=== PATIENT | female | born 1935 | race Caucasian/White ===

== ENCOUNTER 2017-10-15 12:49 | Outpatient (CLI) | payer MEDICARE | END 2017-10-15 12:50 | disposition home or self-care (01) | LOC: BICMAMMO 12:49 | PROVIDERS: ATTEND Nurse Practitioner | DX: Z12.31 Encounter for screening mammogram for malignant neoplasm of breast (principal); Z13.820 Encounter for screening for osteoporosis; M85.852 Other specified disorders of bone density and structure, left thigh | CPT/HCPCS: 77063; 77067; 77080 ==

== ENCOUNTER 2018-06-02 09:48 | Outpatient (CLI) | payer MEDICARE ==
--- NOTE | 2018-06-02 12:54 | MRI ---
MRI LUMBAR SPINE WITH AND WITHOUT CONTRAST: HISTORY: Fall one month ago with bilateral leg pain. History of back surgery. COMPARISON: 05/27/2016 and 04/28/2013 TECHNIQUE: Multiplanar, multisequence MR images were obtained of the lumbar spine with and without IV contrast. FINDINGS: Generalized disk desiccation is seen. The vertebral bodies demonstrate normal height and alignment w ithout fracture or subluxation. The patient has had laminectomies in the lower lumbosacral spine. A small amount of edema is seen in the paraspinal soft tissues, at the operative site. There is enhan cement of the paraspinal musculature, which is less intense than the prior examination. There is sti ll a small amount of epidural enhancement, seen inferiorly and anteriorly, at the L5-S1 level, but al so less pronounced. T12-L1: A small disk osteophyte complex is seen. Mild bilateral posterior facet arthrosis. No signi ficant central canal stenosis or neural foraminal stenosis. L1-L2: A small disk osteophyte complex is seen. Mild bilateral posterior facet arthrosis. Mild kenan tral canal stenosis. Mild bilateral neural foraminal stenosis. L2-L3: A small disk osteophyte complex is seen. Moderate bilateral posterior facet arthrosis. Mild central canal stenosis. Mild to moderate bilateral neural foraminal stenosis. L3-L4: A moderate disk osteophyte complex is seen. Moderate bilateral posterior facet arthrosis. M ild central canal stenosis. Moderate bilateral neural foraminal stenosis. L4-L5: The disk has predominantly been removed at this level. A moderate osteophyte is seen, extend ing posteriorly. Moderate bilateral posterior facet arthrosis. Moderate central canal stenosis. Th e osteophyte appears to impress upon the left S1 nerve root. Moderate bilateral neural foraminal jeri nosis, left greater than right. L5-S1: A small central disk osteophyte complex is seen. Mild bilateral posterior facet arthrosis. Moderate central canal stenosis. Mild to moderate bilateral neural foraminal stenosis. IMPRESSION: Post surgical and degenerative changes of the lumbar spine, as above. POS: SHAYLEE
== END 2018-06-02 09:49 | disposition home or self-care (01) ==
LOC: TBSIIMAG 09:48
PROVIDERS: ATTEND Neurological Surgery
DX: M47.26 Other spondylosis with radiculopathy, lumbar region (principal); M47.27 Other spondylosis with radiculopathy, lumbosacral region; Z98.890 Other specified postprocedural states
CPT/HCPCS: 72158; 82565

== ENCOUNTER 2018-06-30 11:46 | Outpatient (CLI) | payer MEDICARE | END 2018-06-30 11:47 | disposition home or self-care (01) | LOC: LABBT 11:46 | PROVIDERS: ATTEND Orthopaedic Surgery | DX: Z01.818 Encounter for other preprocedural examination (principal); M17.11 Unilateral primary osteoarthritis, right knee | CPT/HCPCS: 86850; 86900; 86901; 87081 ==

== ENCOUNTER 2018-07-05 06:22 | Inpatient (IN) | payer MEDICARE ==
[2018-06-24 09:50] VITALS: BMI 27.4
[2018-07-05] MEDS ORDERED: Midazolam HCl 2 mg/2 ml Vial ONE (07:05)
[2018-07-05] MEDS ORDERED: Fentanyl 100 MCG/2 ML VIAL ONE (07:05)
[2018-07-05] MEDS ORDERED: Clindamycin/D5W 600 mg/50 ml Premix Bag ONE (07:16)
[2018-07-05] MEDS ORDERED: Sodium Chloride 0.9% 100 ML ONE (07:16)
[2018-07-05] MEDS ORDERED: traMADol HCl 50 MG TAB PO PRN ×3 (09:02→11:44)
[2018-07-05] MEDS ORDERED: Ropivacaine HCl/PF 250 ML in Premix Bag 1 BAG NERVE BLCK SCH (09:02)
[2018-07-05] MEDS ORDERED: Ondansetron HCl/PF 4 MG/2 ML Vial IVP PRN ×3 (09:02→11:44)
[2018-07-05] MEDS ORDERED: HYDROcodone/Acetaminophen 10/325 mg Tablet PO PRN ×2 (09:02)
[2018-07-05] MEDS ORDERED: Zolpidem Tartrate 5 MG TAB PO PRN ×2 (09:02→11:44)
[2018-07-05] MEDS ORDERED: Promethazine HCl 25 MG/ML VIAL IM PRN ×3 (09:02→11:44)
[2018-07-05] MEDS ORDERED: Bupivacaine PF 0.5% 30 ML VIAL ONE (10:11)
[2018-07-05] MEDS ORDERED: Promethazine HCl 25 MG/ML VIAL SLOW IVP PRN (10:34)
[2018-07-05] MEDS ORDERED: Ropivacaine 0.2% HCl/PF (40 MG/20 ML VIAL) ONE (10:35)
[2018-07-05] MEDS ORDERED: Ropivacaine 0.5% HCl/PF (150 MG/30 ML VIAL) ONE (10:35)
[2018-07-05] MEDS ORDERED: PROPOFOL 200 MG/20 ML VIAL ONE (10:37)
[2018-07-05] MEDS ORDERED: Ondansetron HCl/PF 4 MG/2 ML Vial ONE (10:37)
[2018-07-05] MEDS ORDERED: ePHEDrine/0.9% NaCl/PF SYRINGE 50 mg/10 ml ONE (10:37)
[2018-07-05] MEDS ORDERED: diphenhydrAMINE 25 MG CAP PO PRN (11:44)
[2018-07-05] MEDS ORDERED: Tranexamic Acid 1,000 MG in Sodium Chloride 0.9% 100 ML IVPB SCH (11:45)
--- NOTE | 2018-07-05 12:34 | OP ---
DATE OF PROCEDURE: 07/05/2018 PREOPERATIVE DIAGNOSIS: Right knee osteoarthrosis. POSTOPERATIVE DIAGNOSIS: Right knee osteoarthrosis. PROCEDURE PERFORMED: Right total knee replacement using Umberto pinless navigation. SURGEON: Hung Tipton M.D. EQUIPMENT MANAGER: Stephen Gregory M.D. COMPLICATIONS: None. ANESTHESIA: The patient had general anesthetic as well as preoperative block. IMPLANTS: To the right knee include a [place] [employer] total knee system, the femur size 4 cruciate retaining femur, tibial baseplate was a size 3 [place] Tibial Baseplate. We used a 3 x 9 mm CSX3 tibial bearing and an asymmetric 29 x 9 X3 patella. DISPOSITION: She did go to the recovery room in stable condition. INDICATIONS: An 82-year-old female who has failed nonoperative treatment and at this time wished to have the knee replaced. PROCEDURE IN DETAIL: After all appropriate consent forms were explained and signed, the patient was t aken back to the Operating Room and at this time was given general anesthetic. Once the level of anes thesia was appropriate, a well-padded tourniquet was placed on the right leg and the leg was then pre pped and draped in standard surgical fashion. The limb was exsanguinated and tourniquet taken up to 3 00 mmHg. Midline incision was made with a 10 blade down through the skin and subcutaneous tissue. Bov ie electrocautery was used to coagulate any brisk venous bleeding. A new blade was used to make a med ial parapatellar arthrotomy. Small subperiosteal release was performed medially and excess fat pad wa s removed. The knee was flexed up to gain access to the femur. The femur was navigated and distal fem oral resection was made. Epicondylar access was used to align our sizing jig and this was pinned in p lace. We sized our femur to be a size 4 cruciate retaining femur, 4:1 cutting block was applied and p inned. Anterior and posterior chamfer cuts were then made. We navigated out our proximal tibia and ma de our proximal tibial resection. Spreaders were used to remove any posterior osteophytes off the andres k of the femur as well as remaining meniscal tissue. A long alignment kar was then used to achieve co rrect rotation of our tibial baseplate and a size 3 [place] Tibial Baseplate was chosen. This was p inned in place. We trialed the polyethylene and a 3 x 9 mm CSX3 tibial bearing polyethylene gave us f ull extension and good stability throughout range of motion. Two towel clips and a saw were used to c ut our patella. Three lug nuts were drilled and asymmetric 29 x 9 X3 patella was trialed which sat ni marry in the trochlear groove. We then drilled our femur and punched our tibia. All components were re moved. The knee was thoroughly irrigated and dried. Cement was mixed into the cement gun on the back table. Components were then placed. The knee was held out in full extension until the cement had drie d. All excess bone cement was removed. Multiple #2 Vicryl stitches as well as a Quill was used to cl ose our extensor mechanism. 0 Quill followed by a running Monoderm was then used to close the skin. S urgicel glue was then used on the skin. Once this had dried, soft tissue dressing was applied to the limb, tourniquet was let down, and the toes pinked up nicely. The patient was then awakened and take n to the Recovery Room in stable condition. All counts were correct at the end of the case. The patie nt did receive preoperative IV antibiotics. The patient was injected with Exparel for postoperative pain relief.
[2018-07-05] MEDS ORDERED: Acetaminophen 1,000 MG in Premix Bag 1 BAG IVPB SCH (13:00)
[2018-07-05] MEDS ORDERED: Clindamycin/D5W 900 MG in Premix Bag 1 BAG IVPB SCH (14:00)
[2018-07-05] MEDS: Fentanyl 100 MCG/2 ML VIAL IV PRN ×2 (14:09→23:19)
[2018-07-05] MEDS: Sodium Chloride 0.9% 1,000 ML IV SCH ×2 (14:17→20:03)
[2018-07-05] MEDS ORDERED: Mag-Al 1200 mg/1200 mg/30 ML UDCUP PO PRN (14:39)
[2018-07-05] MEDS ORDERED: Ondansetron ODT 4 MG TAB PO PRN (14:39)
[2018-07-05] MEDS ORDERED: Senokot 8.6 MG TAB PO PRN (14:39)
[2018-07-05] MEDS ORDERED: Artificial Tears 18 DROP/0.9 ML EA EYE PRN (14:39)
[2018-07-05] MEDS ORDERED: Diabetic Tussin 200 MG/10 ML UDCUP PO PRN (14:39)
[2018-07-05] MEDS ORDERED: Sodium Chloride 0.65% Nasal 44 ML BOT EA NARE PRN (14:39)
[2018-07-05] MEDS ORDERED: Milk Of Magnesia 30 ML UDCUP PO PRN (14:39)
[2018-07-05] MEDS ORDERED: Eucerin (Mineral Oil/Petrolatum,White) 30 gm Jar TOP PRN (14:39)
[2018-07-05] MEDS ORDERED: hydrALAZINE 20 MG/ML VIAL SLOW IVP PRN (14:39)
[2018-07-05] MEDS ORDERED: Chloraseptic Spray 180 ml Bottle PO PRN (14:39)
[2018-07-05] MEDS ORDERED: Loperamide HCl 2 MG CAP PO PRN (14:39)
--- NOTE | 2018-07-05 14:49 | PDOC.PN ---
- Subjective Encounter Start Date: 07/05/18 Encounter Start Time: 15:05 -: old records requested/rev Patient seen and examined. No overnight events admitted for right knee replacement consulted for medical management currently pain controlled - Objective Resuscitation Status: Resuscitation Status FULL:Full Resuscitation MAR Reviewed: Yes Vital Signs & Weight: Weight Weight 160 lb Additional Labs: OLD MEDICAL RECORDS REVIEWED INCLUDING LABS, ALL LABS ARE NORMAL EKG Reviewed by me: Yes Phys Exam - Physical Examination Constitutional: NAD HEENT: PERRLA, moist MMs, sclera anicteric Neck: no JVD, supple Respiratory: no wheezing, no rales, no rhonchi Cardiovascular: RRR, no significant murmur, no rub Gastrointestinal: soft, non-tender, no distention, positive bowel sounds Musculoskeletal: no edema, pulses present right knee with dressing, nerve block in place Neurological: non-focal, normal sensation, moves all 4 limbs Lymphatic: no nodes Psychiatric: normal affect, A&O x 3 Skin: no rash, normal turgor Dx/Plan (1) Status post total right knee replacement Code(s): Z96.651 - PRESENCE OF RIGHT ARTIFICIAL KNEE JOINT Status: Acute (2) Dyslipidemia Code(s): E78.5 - HYPERLIPIDEMIA, UNSPECIFIED Status: Chronic (3) Hypertension Code(s): I10 - ESSENTIAL (PRIMARY) HYPERTENSION Status: Chronic (4) Osteoarthritis Code(s): M19.90 - UNSPECIFIED OSTEOARTHRITIS, UNSPECIFIED SITE Status: Chronic - Plan cont current plan of care, plan discussed w/ family, PT/OT * continue aspirin for DVT prophylaxis as per protocol * add pepcid for GI prophylaxis * code status- full code * nerve block as per anesthesia * PT/OT as per [facility] protocol * pain control with pain meds as below * medication reviewed as below * symptomatic treatment * home medication reconciled. * discussed with family Review of Systems - Review of Systems Constitutional: negative: fever, chills, sweats, weakness, malaise, other Eyes: negative: Pain, Vision Change, Conjunctivae Inflammation, Eyelid Inflammation, Redness, Other ENT: negative: Ear Pain, Ear Discharge, Nose Pain, Nose Discharge, Nose Congestion, Mouth Pain, Mouth Swelling, Throat Pain, Throat Swelling, Other Respiratory: negative: Cough, Dry, Shortness of Breath, Hemoptysis, SOB with Excertion, Pleuritic Pain, Sputum, Wheezing Cardiovascular: negative: chest pain, palpitations, orthopnea, paroxysmal nocturnal dyspnea, edema, light headedness, other Gastrointestinal: negative: Nausea, Vomiting, Abdominal Pain, Diarrhea, Constipation, Melena, Hematochezia, Other Genitourinary: negative: Dysuria, Frequency, Incontinence, Hematuria, Retention , Other Musculoskeletal: negative: Neck Pain, Shoulder Pain, Arm Pain, Back Pain, Hand Pain, Leg Pain, Foot Pain, Other Skin: negative: Rash, Lesions, Jonel, Bruising, Other - Medications/Allergies Allergies/Adverse Reactions: Allergies Allergy/AdvReac Type Severity Reaction Status Date / Time ciprofloxacin [From Cipro] Allergy Verified 06/24/18 12:10 codeine Allergy "REAL SICK" Verified 06/24/18 09:51 pentazocine lactate Allergy HALLUCINATI Verified 06/24/18 09:51 [From Talwin] ONS sulfamethoxazole Allergy LARGE Verified 06/24/18 09:51 [From Bactrim] WHELPS trimethoprim [From Bactrim] Allergy LARGE Verified 06/24/18 09:51 WHELPS ADHESIVES Allergy RASH, Uncoded 10/17/16 11:20 BLISTERING Medications: Current Medications Acetaminophen (Tylenol) 650 mg PO Q4H PRN PRN Reason: ESPINOZA/ T > 101F; Mild Pain (1-3) Hydrocodone Bitart/Acetaminophen ([place] 10/325) 1 tab PO Q4H PRN PRN Reason: Pain (1-3) Hydrocodone Bitart/Acetaminophen ([place] 10/325) 2 tab PO Q4H PRN PRN Reason: PAIN (4-6) Al Hydroxide/Mg Hydroxide (Maalox) 15 ml PO Q4H PRN PRN Reason: Heartburn or Indigestion Amlodipine/Benazepril HCl (Lotrel 5/20) 1 cap PO QAM DAN[facility] Artificial Tears (Tears Naturale) 0 drop EA EYE PRN PRN PRN Reason: Dry Eyes Aspirin (Ecotrin) 81 mg PO BID DAN[facility] Atorvastatin Calcium (Lipitor) 10 mg PO HS DAN[facility] Diphenhydramine HCl (Benadryl) 25 mg PO Q6H PRN PRN Reason: Itching Famotidine (Pepcid) 20 mg PO BID [facility] Fentanyl (Sublimaze) 50 mcg IV Q1H PRN PRN Reason: Breakthrough Pain Last Admin: 07/05/18 14:09 Dose: 50 mcg Ferrous Gluconate (Fergon) 324 mg PO BID [facility] Guaifenesin (Robitussin Sf) 200 mg PO Q4H PRN PRN Reason: Cough Hydralazine HCl (Apresoline) 10 mg SLOW IVP Q4H PRN PRN Reason: Systolic BP > 180 Ropivacaine 250 ml/ Device 250 mls @ 0 mls/hr NERVE BLCK INF [facility] Sodium Chloride (Normal Saline 0.9%) 1,000 mls @ 100 mls/hr IV .Q10H [facility] Last Admin: 07/05/18 14:17 Dose: Not Given Vancomycin HCl 1 gm/ Device 200 mls @ 200 mls/hr IVPB 2000 [facility] Stop: 07/05/18 20:59 Acetaminophen 1,000 mg/ Device 100 mls @ 400 mls/hr IVPB ONE [facility] Stop: 07/06/18 15:00 Clindamycin Phosphate/Dextrose (900 mg/ Device) 50 mls @ 100 mls/hr IVPB 1600, 2200 [facility] Stop: 07/05/18 22:29 Iron/Minerals/Multivitamins (Theragran M) 1 tab PO DAILY [facility] Ketorolac Tromethamine (Toradol) 15 mg IVP Q6H PRN PRN Reason: Moderate Pain (4-6) Stop: 07/08/18 09:03 Loperamide HCl (Imodium) 2 mg PO PRN PRN PRN Reason: Diarrhea/Loose Stools Magnesium Hydroxide (Milk Of Magnesium) 30 ml PO DAILYPRN PRN PRN Reason: Constipation Mineral Oil/White Petrolatum (Eucerin Cream) 0 gm TOP BIDPRN PRN PRN Reason: Dry Skin Ondansetron HCl (Zofran) 4 mg IVP Q6H PRN PRN Reason: Nausea/Vomiting Ondansetron HCl (Zofran Odt) 4 mg PO Q6H PRN PRN Reason: Nausea/Vomiting Phenol (Chloraseptic [place] 180 Ml Bot) 0 ml PO PRN PRN PRN Reason: Sore Throat Polyethylene Glycol (Miralax) 17 gm PO HS [facility] Promethazine HCl (Phenergan) 12.5 mg IM Q4H PRN PRN Reason: Nausea/Vomiting Psyllium Hydrophilic Mucilloid (Metamucil) 1 pk PO BID [facility] Senna (Senokot) 2 tab PO HSPRN PRN PRN Reason: Constipation Senna/Docusate Sodium (Senokot S) 2 tab PO BID [facility] Sodium Chloride (Flush - Normal Saline) 10 ml IVF PRN PRN PRN Reason: Saline Flush Sodium Chloride ([place] Nasal [place] 0.65%) 0 ml EA NARE QIDPRN PRN PRN Reason: Nasal Congestion Tramadol HCl (Ultram) 100 mg PO Q6H PRN PRN Reason: Mild Pain (1-3) Zolpidem Tartrate (Ambien) 5 mg PO HSPRN PRN PRN Reason: Insomnia
[2018-07-05] MEDS: Clindamycin/D5W 900 MG in Premix Bag 1 BAG IVPB SCH ×2 (16:42→22:50)
[2018-07-05] MEDS: Ferrous Gluconate 324 MG TAB PO SCH (19:54)
[2018-07-05] MEDS: Atorvastatin Calcium 10 MG TAB PO SCH (19:54)
[2018-07-05] MEDS: Famotidine 20 MG TAB PO SCH (19:54)
[2018-07-05] MEDS: Aspirin 81 mg Enteric Coated Tablet PO SCH (19:54)
[2018-07-05] MEDS: Senokot S 8.6-50 MG TAB PO SCH (19:54)
[2018-07-05] MEDS: Polyethylene Glycol 3350 17 GM Packet PO SCH (19:55)
[2018-07-05] MEDS: Metamucil PACK PO SCH (19:55)
[2018-07-05] MEDS: Ketorolac Tromethamine 30 MG/ML VIAL IVP PRN (19:57)
[2018-07-05] MEDS ORDERED: Vancomycin HCl 1 GM in Premix Bag 1 BAG IVPB SCH (20:00)
[2018-07-06] MEDS: Fentanyl 100 MCG/2 ML VIAL IV PRN (03:07)
[2018-07-06] MEDS: Ketorolac Tromethamine 30 MG/ML VIAL IVP PRN ×3 (04:34→18:20)
[2018-07-06 05:55] LABS: Hemoglobin 11.6 g/dL (12.0-16.0); Mean Corpuscular HGB CONC 32.8 g/dL (32.0-36.0); Mean Corpuscular Volume 94.5 fL (78.0-98.0); Mean Platelet Volume 8.7 fL (7.4-10.4); Platelet Count 202 thou/uL (130-400); RBC Distribution Width 12.4 % (11.5-14.5); Red Blood Cell (RBC) Count 3.73 mill/uL (4.20-5.40); White Blood Cell (WBC) Count 10.6 thou/uL (4.8-10.8)
[2018-07-06] MEDS: Acetaminophen 325 MG TAB PO PRN ×2 (05:55→21:29)
[2018-07-06] MEDS: Famotidine 20 MG TAB PO SCH ×2 (08:46→21:30)
[2018-07-06] MEDS: Amlodipine 5 mg/Benazepril 20 mg CAP PO SCH (08:53)
[2018-07-06] MEDS: Metamucil PACK PO SCH ×3 (08:53→21:36)
[2018-07-06] MEDS: Multivitamin W/ Minerals 1 TAB PO SCH (08:53)
[2018-07-06] MEDS: Aspirin 81 mg Enteric Coated Tablet PO SCH ×2 (08:54→21:35)
[2018-07-06] MEDS: Ferrous Gluconate 324 MG TAB PO SCH ×2 (08:54→21:30)
[2018-07-06] MEDS: Senokot S 8.6-50 MG TAB PO SCH ×2 (08:54→21:30)
[2018-07-06] MEDS: Sodium Chloride 0.9% 1,000 ML IV SCH ×2 (08:55→18:20)
--- NOTE | 2018-07-06 10:25 | PDOC.PN ---
- Subjective Encounter Start Date: 07/06/18 Encounter Start Time: 08:30 Patient seen and examined. No new complaints. No overnight events - Objective Resuscitation Status: Resuscitation Status FULL:Full Resuscitation MAR Reviewed: Yes Vital Signs & Weight: Vital Signs (12 hours) Temp Pulse Resp BP Pulse Ox 07/06/18 08:00 95 07/06/18 07:10 99.1 F 73 18 120/54 L 95 07/06/18 05:00 94 L 07/06/18 04:15 99 F 86 16 128/60 91 L 07/06/18 00:00 98.7 F 82 16 151/78 H Weight Weight 160 lb I&O: 07/05/18 07/06/18 07/07/18 06:59 06:59 06:59 Intake Total 2225 Output Total 2150 Balance 75 Result Diagrams: 07/06/18 04:52 Additional Labs: Accuchecks 07/05/18 22:53 POC Glucose 166 H Phys Exam - Physical Examination Constitutional: NAD HEENT: PERRLA, moist MMs, sclera anicteric Neck: no JVD, supple Respiratory: no wheezing, no rales, no rhonchi Cardiovascular: RRR, no significant murmur, no rub Gastrointestinal: soft, non-tender, no distention, positive bowel sounds Musculoskeletal: no edema, pulses present right knee with dressing, nerve block in place Neurological: non-focal, normal sensation, moves all 4 limbs Psychiatric: normal affect, A&O x 3 Skin: no rash, normal turgor Dx/Plan (1) Status post total right knee replacement Code(s): Z96.651 - PRESENCE OF RIGHT ARTIFICIAL KNEE JOINT Status: Acute (2) Dyslipidemia Code(s): E78.5 - HYPERLIPIDEMIA, UNSPECIFIED Status: Chronic (3) Hypertension Code(s): I10 - ESSENTIAL (PRIMARY) HYPERTENSION Status: Chronic (4) Osteoarthritis Code(s): M19.90 - UNSPECIFIED OSTEOARTHRITIS, UNSPECIFIED SITE Status: Chronic - Plan cont current plan of care, plan discussed w/ family, PT/OT * continue aspirin for DVT prophylaxis as per protocol * add pepcid for GI prophylaxis * nerve block as per anesthesia * PT/OT as per joint bee protocol * pain control with pain meds as below * medication reviewed as below * symptomatic treatment * discussed with family. Review of Systems - Review of Systems ENT: negative: Ear Pain, Ear Discharge, Nose Pain, Nose Discharge, Nose Congestion, Mouth Pain, Mouth Swelling, Throat Pain, Throat Swelling, Other Respiratory: negative: Cough, Dry, Shortness of Breath, Hemoptysis, SOB with Excertion, Pleuritic Pain, Sputum, Wheezing Cardiovascular: negative: chest pain, palpitations, orthopnea, paroxysmal nocturnal dyspnea, edema, light headedness, other Gastrointestinal: negative: Nausea, Vomiting, Abdominal Pain, Diarrhea, Constipation, Melena, Hematochezia, Other Genitourinary: negative: Dysuria, Frequency, Incontinence, Hematuria, Retention , Other Musculoskeletal: negative: Neck Pain, Shoulder Pain, Arm Pain, Back Pain, Hand Pain, Leg Pain, Foot Pain, Other Skin: negative: Rash, Lesions, Jonel, Bruising, Other - Medications/Allergies Allergies/Adverse Reactions: Allergies Allergy/AdvReac Type Severity Reaction Status Date / Time ciprofloxacin [From Cipro] Allergy Verified 06/24/18 12:10 codeine Allergy "REAL SICK" Verified 07/05/18 20:22 pentazocine lactate Allergy HALLUCINATI Verified 06/24/18 09:51 [From Talwin] ONS sulfamethoxazole Allergy LARGE Verified 06/24/18 09:51 [From Bactrim] WHELPS tramadol Allergy unkown Verified 07/05/18 20:22 trimethoprim [From Bactrim] Allergy LARGE Verified 06/24/18 09:51 WHELPS ADHESIVES Allergy RASH, Uncoded 10/17/16 11:20 BLISTERING Medications: Current Medications Acetaminophen (Tylenol) 650 mg PO Q4H PRN PRN Reason: ESPINOZA/ T > 101F; Mild Pain (1-3) Last Admin: 07/06/18 05:55 Dose: 650 mg Hydrocodone Bitart/Acetaminophen ([place] 10/325) 1 tab PO Q4H PRN PRN Reason: Pain (1-3) Hydrocodone Bitart/Acetaminophen ([place] 10/325) 2 tab PO Q4H PRN PRN Reason: PAIN (4-6) Al Hydroxide/Mg Hydroxide (Maalox) 15 ml PO Q4H PRN PRN Reason: Heartburn or Indigestion Amlodipine/Benazepril HCl (Lotrel 5/20) 1 cap PO QAM DANILO Last Admin: 07/06/18 08:53 Dose: 1 cap Artificial Tears (Tears Naturale) 0 drop EA EYE PRN PRN PRN Reason: Dry Eyes Aspirin (Ecotrin) 81 mg PO BID [facility] Last Admin: 07/06/18 08:54 Dose: 81 mg Atorvastatin Calcium (Lipitor) 10 mg PO HS [facility] Last Admin: 07/05/18 19:54 Dose: 10 mg Diphenhydramine HCl (Benadryl) 25 mg PO Q6H PRN PRN Reason: Itching Famotidine (Pepcid) 20 mg PO BID [facility] Last Admin: 07/06/18 08:46 Dose: 20 mg Fentanyl (Sublimaze) 50 mcg IV Q1H PRN PRN Reason: Breakthrough Pain Last Admin: 07/06/18 03:07 Dose: 50 mcg Ferrous Gluconate (Fergon) 324 mg PO BID [facility] Last Admin: 07/06/18 08:54 Dose: 324 mg Guaifenesin (Robitussin Sf) 200 mg PO Q4H PRN PRN Reason: Cough Hydralazine HCl (Apresoline) 10 mg SLOW IVP Q4H PRN PRN Reason: Systolic BP > 180 Ropivacaine 250 ml/ Device 250 mls @ 0 mls/hr NERVE BLCK INF [facility] Sodium Chloride (Normal Saline 0.9%) 1,000 mls @ 100 mls/hr IV .Q10H [facility] Last Admin: 07/06/18 08:55 Dose: Not Given Acetaminophen 1,000 mg/ Device 100 mls @ 400 mls/hr IVPB ONE [facility] Stop: 07/06/18 15:00 Iron/Minerals/Multivitamins (Theragran M) 1 tab PO DAILY [facility] Last Admin: 07/06/18 08:53 Dose: 1 tab Ketorolac Tromethamine (Toradol) 15 mg IVP Q6H PRN PRN Reason: Moderate Pain (4-6) Stop: 07/08/18 09:03 Last Admin: 07/06/18 04:34 Dose: 15 mg Loperamide HCl (Imodium) 2 mg PO PRN PRN PRN Reason: Diarrhea/Loose Stools Magnesium Hydroxide (Milk Of Magnesium) 30 ml PO DAILYPRN PRN PRN Reason: Constipation Mineral Oil/White Petrolatum (Eucerin Cream) 0 gm TOP BIDPRN PRN PRN Reason: Dry Skin Ondansetron HCl (Zofran) 4 mg IVP Q6H PRN PRN Reason: Nausea/Vomiting Ondansetron HCl (Zofran Odt) 4 mg PO Q6H PRN PRN Reason: Nausea/Vomiting Phenol (Chloraseptic [place] 180 Ml Bot) 0 ml PO PRN PRN PRN Reason: Sore Throat Polyethylene Glycol (Miralax) 17 gm PO [facility] Last Admin: 07/05/18 19:55 Dose: 17 gm Promethazine HCl (Phenergan) 12.5 mg IM Q4H PRN PRN Reason: Nausea/Vomiting Psyllium Hydrophilic Mucilloid (Metamucil) 1 pk PO BID [facility] Last Admin: 07/06/18 08:53 Dose: 1 pk Senna (Senokot) 2 tab PO HSPRN PRN PRN Reason: Constipation Senna/Docusate Sodium (Senokot S) 2 tab PO BID [facility] Last Admin: 07/06/18 08:54 Dose: 2 tab Sodium Chloride (Flush - Normal Saline) 10 ml IVF PRN PRN PRN Reason: Saline Flush Sodium Chloride ([place] Nasal [place] 0.65%) 0 ml EA NARE QIDPRN PRN PRN Reason: Nasal Congestion Tramadol HCl (Ultram) 100 mg PO Q6H PRN PRN Reason: Mild Pain (1-3) Zolpidem Tartrate (Ambien) 5 mg PO HSPRN PRN PRN Reason: Insomnia
[2018-07-06] MEDS: Atorvastatin Calcium 10 MG TAB PO SCH (21:30)
[2018-07-06] MEDS: Polyethylene Glycol 3350 17 GM Packet PO SCH (21:35)
[2018-07-07] MEDS: Sodium Chloride 0.9% 1,000 ML IV SCH ×2 (00:05→08:30)
[2018-07-07] MEDS: Ketorolac Tromethamine 30 MG/ML VIAL IVP PRN (05:52)
[2018-07-07 05:57] LABS: Hemoglobin 12.3 g/dL (12.0-16.0); Mean Corpuscular HGB CONC 32.6 g/dL (32.0-36.0); Mean Corpuscular Hemoglobin 31.1 pg (27.0-31.0); Mean Corpuscular Volume 95.6 fL (78.0-98.0); Mean Platelet Volume 8.5 fL (7.4-10.4); Platelet Count 189 thou/uL (130-400); RBC Distribution Width 12.6 % (11.5-14.5); Red Blood Cell (RBC) Count 3.97 mill/uL (4.20-5.40); White Blood Cell (WBC) Count 11.9 thou/uL (4.8-10.8)
[2018-07-07] MEDS: Metamucil PACK PO SCH (08:26)
[2018-07-07] MEDS: Aspirin 81 mg Enteric Coated Tablet PO SCH (08:27)
[2018-07-07] MEDS: Ferrous Gluconate 324 MG TAB PO SCH (08:27)
[2018-07-07] MEDS: Amlodipine 5 mg/Benazepril 20 mg CAP PO SCH (08:27)
[2018-07-07] MEDS: Multivitamin W/ Minerals 1 TAB PO SCH (08:27)
[2018-07-07] MEDS: Senokot S 8.6-50 MG TAB PO SCH (08:27)
[2018-07-07] MEDS: Famotidine 20 MG TAB PO SCH (08:27)
--- NOTE | 2018-07-07 10:25 | PDOC.PN ---
- Subjective Encounter Start Date: 07/07/18 Encounter Start Time: 09:00 Patient seen and examined. No new complaints. No overnight events she slept good last night, sage out, still has nerve block, pain controlled - Objective Resuscitation Status: Resuscitation Status FULL:Full Resuscitation MAR Reviewed: Yes Vital Signs & Weight: Vital Signs (12 hours) Temp Pulse Resp BP BP Pulse Ox 07/07/18 07:57 93 L 07/07/18 07:26 99.3 F 77 16 135/68 93 L 07/07/18 04:05 99.2 F 75 20 147/74 H 95 07/06/18 23:47 99.7 F H 77 17 125/66 95 Weight Admit Weight 160 lb Weight 160 lb I&O: 07/06/18 07/07/18 07/08/18 06:59 06:59 06:59 Intake Total 2225 860 720 Output Total 2150 2450 Balance 75 -1590 720 Result Diagrams: 07/07/18 05:03 Additional Labs: Accuchecks 07/06/18 21:38 POC Glucose 144 H Phys Exam - Physical Examination Constitutional: NAD HEENT: PERRLA, moist MMs, sclera anicteric Neck: no JVD, supple Respiratory: no wheezing, no rales, no rhonchi Cardiovascular: RRR, no significant murmur, no rub Gastrointestinal: soft, non-tender, no distention, positive bowel sounds Musculoskeletal: no edema, pulses present surgical site with dressing, nerve block Neurological: non-focal Psychiatric: normal affect, A&O x 3 Skin: no rash, normal turgor Dx/Plan (1) Status post total right knee replacement Code(s): Z96.651 - PRESENCE OF RIGHT ARTIFICIAL KNEE JOINT Status: Acute (2) Dyslipidemia Code(s): E78.5 - HYPERLIPIDEMIA, UNSPECIFIED Status: Chronic (3) Hypertension Code(s): I10 - ESSENTIAL (PRIMARY) HYPERTENSION Status: Chronic (4) Osteoarthritis Code(s): M19.90 - UNSPECIFIED OSTEOARTHRITIS, UNSPECIFIED SITE Status: Chronic - Plan cont current plan of care, plan discussed w/ family, PT/OT * continue aspirin for DVT prophylaxis as per protocol * continue pepcid for GI prophylaxis * nerve block will be removed today * PT/OT as per [facility] protocol * pain control with pain meds as below * medication reviewed as below * symptomatic treatment * medically stable with current treatment * discharge will defer to primary team. * resume home meds on discharge * discussed with family Review of Systems - Review of Systems ENT: negative: Ear Pain, Ear Discharge, Nose Pain, Nose Discharge, Nose Congestion, Mouth Pain, Mouth Swelling, Throat Pain, Throat Swelling, Other Respiratory: negative: Cough, Dry, Shortness of Breath, Hemoptysis, SOB with Excertion, Pleuritic Pain, Sputum, Wheezing Cardiovascular: negative: chest pain, palpitations, orthopnea, paroxysmal nocturnal dyspnea, edema, light headedness, other Gastrointestinal: negative: Nausea, Vomiting, Abdominal Pain, Diarrhea, Constipation, Melena, Hematochezia, Other Genitourinary: negative: Dysuria, Frequency, Incontinence, Hematuria, Retention , Other Musculoskeletal: negative: Neck Pain, Shoulder Pain, Arm Pain, Back Pain, Hand Pain, Leg Pain, Foot Pain, Other Skin: negative: Rash, Lesions, Jonel, Bruising, Other - Medications/Allergies Allergies/Adverse Reactions: Allergies Allergy/AdvReac Type Severity Reaction Status Date / Time ciprofloxacin [From Cipro] Allergy Verified 06/24/18 12:10 codeine Allergy "REAL SICK" Verified 07/05/18 20:22 pentazocine lactate Allergy HALLUCINATI Verified 06/24/18 09:51 [From Talwin] ONS sulfamethoxazole Allergy LARGE Verified 06/24/18 09:51 [From Bactrim] WHELPS tramadol Allergy unkown Verified 07/05/18 20:22 trimethoprim [From Bactrim] Allergy LARGE Verified 06/24/18 09:51 WHELPS ADHESIVES Allergy RASH, Uncoded 10/17/16 11:20 BLISTERING Medications: Current Medications Acetaminophen (Tylenol) 650 mg PO Q4H PRN PRN Reason: ESPINOZA/ T > 101F; Mild Pain (1-3) Last Admin: 07/06/18 21:29 Dose: 650 mg Hydrocodone Bitart/Acetaminophen (Clarence 10/325) 1 tab PO Q4H PRN PRN Reason: Pain (1-3) Last Admin: 07/07/18 08:34 Dose: 1 tab Hydrocodone Bitart/Acetaminophen (Clarence 10/325) 2 tab PO Q4H PRN PRN Reason: PAIN (4-6) Al Hydroxide/Mg Hydroxide (Maalox) 15 ml PO Q4H PRN PRN Reason: Heartburn or Indigestion Amlodipine/Benazepril HCl (Lotrel 5/20) 1 cap PO QAM [facility] Last Admin: 07/07/18 08:27 Dose: 1 cap Artificial Tears (Tears Naturale) 0 drop EA EYE PRN PRN PRN Reason: Dry Eyes Aspirin (Ecotrin) 81 mg PO BID [facility] Last Admin: 07/07/18 08:27 Dose: 81 mg Atorvastatin Calcium (Lipitor) 10 mg PO HS [facility] Last Admin: 07/06/18 21:30 Dose: 10 mg Diphenhydramine HCl (Benadryl) 25 mg PO Q6H PRN PRN Reason: Itching Famotidine (Pepcid) 20 mg PO BID [facility] Last Admin: 07/07/18 08:27 Dose: 20 mg Fentanyl (Sublimaze) 50 mcg IV Q1H PRN PRN Reason: Breakthrough Pain Last Admin: 07/06/18 03:07 Dose: 50 mcg Ferrous Gluconate (Fergon) 324 mg PO BID [facility] Last Admin: 07/07/18 08:27 Dose: 324 mg Guaifenesin (Robitussin Sf) 200 mg PO Q4H PRN PRN Reason: Cough Hydralazine HCl (Apresoline) 10 mg SLOW IVP Q4H PRN PRN Reason: Systolic BP > 180 Ropivacaine 250 ml/ Device 250 mls @ 0 mls/hr NERVE BLCK INF [facility] Last Admin: 07/06/18 13:23 Dose: 250 mls Sodium Chloride (Normal Saline 0.9%) 1,000 mls @ 100 mls/hr IV .Q10H [facility] Last Admin: 07/07/18 08:30 Dose: Not Given Iron/Minerals/Multivitamins (Theragran M) 1 tab PO DAILY [facility] Last Admin: 07/07/18 08:27 Dose: 1 tab Ketorolac Tromethamine (Toradol) 15 mg IVP Q6H PRN PRN Reason: Moderate Pain (4-6) Stop: 07/08/18 09:03 Last Admin: 07/07/18 05:52 Dose: 15 mg Loperamide HCl (Imodium) 2 mg PO PRN PRN PRN Reason: Diarrhea/Loose Stools Magnesium Hydroxide (Milk Of Magnesium) 30 ml PO DAILYPRN PRN PRN Reason: Constipation Mineral Oil/White Petrolatum (Eucerin Cream) 0 gm TOP BIDPRN PRN PRN Reason: Dry Skin Ondansetron HCl (Zofran) 4 mg IVP Q6H PRN PRN Reason: Nausea/Vomiting Ondansetron HCl (Zofran Odt) 4 mg PO Q6H PRN PRN Reason: Nausea/Vomiting Phenol (Chloraseptic [place] 180 Ml Bot) 0 ml PO PRN PRN PRN Reason: Sore Throat Polyethylene Glycol (Miralax) 17 gm PO HS [facility] Last Admin: 07/06/18 21:35 Dose: 17 gm Promethazine HCl (Phenergan) 12.5 mg IM Q4H PRN PRN Reason: Nausea/Vomiting Psyllium Hydrophilic Mucilloid (Metamucil) 1 pk PO BID [facility] Last Admin: 07/07/18 08:26 Dose: 1 pk Senna (Senokot) 2 tab PO HSPRN PRN PRN Reason: Constipation Senna/Docusate Sodium (Senokot S) 2 tab PO BID [facility] Last Admin: 07/07/18 08:27 Dose: 2 tab Sodium Chloride (Flush - Normal Saline) 10 ml IVF PRN PRN PRN Reason: Saline Flush Last Admin: 07/06/18 18:22 Dose: 10 ml Sodium Chloride ([place] Nasal [place] 0.65%) 0 ml EA NARE QIDPRN PRN PRN Reason: Nasal Congestion Tramadol HCl (Ultram) 100 mg PO Q6H PRN PRN Reason: Mild Pain (1-3) Zolpidem Tartrate (Ambien) 5 mg PO HSPRN PRN PRN Reason: Insomnia
--- NOTE | 2018-07-07 11:05 | DIS ---
DATE OF ADMISSION: 07/05/2018 DATE OF DISCHARGE: 07/07/2018 DISCHARGE DISPOSITION: Home. PRIMARY DISCHARGE DIAGNOSIS: Status post right total knee replacement. SECONDARY DISCHARGE DIAGNOSES: Hypertension, dyslipidemia, osteoarthritis. PRIMARY PROCEDURE/OPERATION: Right total knee replacement. RADIOLOGICAL INVESTIGATION: None. SIGNIFICANT LABORATORY DATA: Hemoglobin 12.3. DISCHARGE MEDICATIONS: Zalma 10 one or two tablets q.4 hourly p.r.n., aspirin 81 mg p.o. b.i.d., Luisito efiber 1 packet p.o. b.i.d., Zocor 20 mg p.o. at bedtime, MiraLax 17 grams p.o. at bedtime, cranberry one tablet daily, amlodipine with benazepril 5/20 one tablet daily, Zofran 4 mg q.6 hourly p.r.n. CONTRAINDICATIONS: None. CODE STATUS: FULL CODE. INPATIENT CONSULTANTS: Dr. Hung Tipton was primary while in hospital. Sound Team was consulted for medical management. TEST RESULTS PENDING ON DISCHARGE: None. ALLERGIES: CIPRO, CODEINE, PENTAZOCINE, and SULFA. DISCHARGE PLAN: Post hospital, patient will follow up with Dr. Tipton on 07/14/2018 at 1:30 p.m. The patient will follow up with Angella Puga Family Nurse Practitioner in 1 week. HOSPITAL COURSE: An 82-year-old female who was electively admitted by Dr. Tipton for right total knee replacement which was done on 07/05/2018. The patient did well while in hospital. She had nerve blo ck while in hospital. She was given aspirin for DVT prophylaxis. She was continued with her home me dication while in hospital as well as on discharge. The patient is given Zalma for pain medication u disha discharge and she will continue aspirin for DVT prophylaxis. Patient did overall well while in hospital with the [facility] protocol. The patient is planne d for discharge by primary team today. The patient is seen and examined at bedside today. Please see my progress note from today for furthe r detail.
[2018-07-07 14:24] VITALS: BP 132/60; TEMP 98.6
== END 2018-07-07 14:40 | disposition home or self-care (01) | DRG 470 ==
LOC: SDC 06:22 → SJJU 13:56
PROVIDERS: ADMIT Orthopaedic Surgery; ATTEND Orthopaedic Surgery
PROC: 0SRC0J9 Replacement of Right Knee Joint with Synthetic Substitute, Cemented, Open Approach (ICD-10-PCS; principal; 2018-07-05)
DX: M17.11 Unilateral primary osteoarthritis, right knee (principal); E78.5 Hyperlipidemia, unspecified; I10 Essential (primary) hypertension; Z88.1 Allergy status to other antibiotic agents; Z88.5 Allergy status to narcotic agent; Z88.2 Allergy status to sulfonamides; Z88.8 Allergy status to other drugs, medicaments and biological substances; M85.80 Other specified disorders of bone density and structure, unspecified site; Z79.899 Other long term (current) drug therapy; Z88.0 Allergy status to penicillin
CPT/HCPCS: 36415; 36416; 85027; C1713; C1776; G8978-GP-CJ; G8979-GP-CI; J0131; J1885; J2250; J2405; J2704; J2795; J3010; J3370; J3490; J7050; Q0162; S0020

== ENCOUNTER 2018-12-22 12:19 | Outpatient (CLI) | payer MEDICARE ==
--- NOTE | 2018-12-22 13:10 | ULT ---
FRenal ultrasound. HISTORY: Urinary tract infections. Multiple longitudinal and transverse images of the kidneys and bladder is obtained using multi hertz curvilinear transducer. Real time and color flow images obtained. Both kidneys are visualized. Right kidney measures 9.7 and left kidney 9.9 cm from pole to pole. Mild to moderate bilateral hydroureteronephrosis is seen. Both ureteral jets are visualized suggesting patency of the ureters. No evidence of bladder mass is s een. No evidence of renal parenchymal thinning or masses seen. Incidentally noted possible gallstone seen. Correlate with right upper quadrant gallbladder sonograph y for further characterization. IMPRESSION: 1:Mild to moderate dilatation of right and left collecting systems compatible with hydronephrosis wit hout evidence of definite obstruction. Both ureteral jets visualized. 2: Findings suggesting cholelithiasis correlate with right upper quadrant sonography.
== END 2018-12-22 12:20 | disposition home or self-care (01) ==
LOC: BICULT 12:19
PROVIDERS: ATTEND Internal Medicine Infectious Disease
DX: N39.0 Urinary tract infection, site not specified (principal); N28.89 Other specified disorders of kidney and ureter
CPT/HCPCS: 76770

== ENCOUNTER 2019-01-21 11:08 | Outpatient (CLI) | payer MEDICARE ==
--- NOTE | 2019-01-23 14:09 | EKG ---
Test Reason : Blood Pressure : / mmHG Vent. Rate : 063 BPM Atrial Rate : 063 BPM P-R Int : 136 ms QRS Dur : 086 ms QT Int : 412 ms P-R-T Axes : 073 075 048 degrees QTc Int : 421 ms Normal sinus rhythm Normal ECG When compared with ECG of 24-JUN-2018 09:27, No significant change was found Confirmed by FLOWER CONNER ([id number]) on 01/23/2019 2:09:20 PM Referred By: ODESSA Confirmed By:FLOWER CONNER
== END 2019-01-21 11:09 | disposition home or self-care (01) ==
LOC: LABBT 11:08
PROVIDERS: ATTEND Neurological Surgery
DX: Z01.818 Encounter for other preprocedural examination (principal); M54.16 Radiculopathy, lumbar region
CPT/HCPCS: 93005; 93010

== ENCOUNTER 2019-01-24 06:29 | Day surgery (SDC) | payer MEDICARE ==
[2019-01-21 11:33] VITALS: BMI 25.7
[2019-01-24] MEDS ORDERED: Bupivacaine HCl 0.5%/Epinephrine 1:200,000/PF 30 ml Vial ONE (06:40)
[2019-01-24] MEDS ORDERED: Thrombin 5000 UNITS/5 ML VIAL ONE (06:40)
[2019-01-24] MEDS ORDERED: Fentanyl 250 MCG/5 ML VIAL ONE (07:24)
--- NOTE | 2019-01-24 07:37 | HP ---
HISTORY OF PRESENT ILLNESS: Ms. Iglesias is here today for followup from our visit in the fall about right-sided L5 pains which have gone, but are still present and significant enough that she would like to discuss surgery. She had a right total knee replacement in June 2018 and has healed well from this, revisiting her MRI from tibia size. She has substantial scar tissue as well as osteophyte formation within the L5 foramina and at the L4-5 interface on the right to match her symptoms. PAST MEDICAL HISTORY: Significant for hypercholesterolemia, diabetes, glaucoma, and hypertension. SURGICAL HISTORY: Unspecified. CURRENT MEDICATIONS: Polyethylene glycol, amlodipine, and simvastatin. ALLERGIES: NO KNOWN DRUG ALLERGIES. PHYSICAL EXAMINATION: GENERAL: The patient is alert and oriented x3. Gait is mildly antalgic. EXTREMITIES: Lower extremity motor exam is normal. ASSESSMENT: Lumbar radiculopathy. PLAN: Dr. Goodman met with the patient, reviewed imaging, and advocated for bilateral L4-5 decompression and a right L5 foraminotomy. He explained to the patient the risks, benefits, and alternatives to the procedure. The patient expressed understanding and elected to move forward with surgery as discussed. I do believe the patient is mentally competent capable of making medical decisions for herself. We will move forward with surgery as planned. Job ID: [id number]
[2019-01-24] MEDS ORDERED: Promethazine HCl 25 MG/ML VIAL ONE (10:27)
[2019-01-24] MEDS ORDERED: Morphine 2 MG/ML SYRINGE ONE (10:36)
[2019-01-24] MEDS ORDERED: Acetaminophen 325 MG TAB ONE (12:12)
[2019-01-24] MEDS ORDERED: tiZANidine HCl 4 MG TAB ONE (12:21)
--- NOTE | 2019-01-24 13:41 | OP ---
DATE OF PROCEDURE: 01/24/2019 VISUAL MERCHANDISING DIRECTOR: Adal Leigh PA-C. INDICATIONS: Pain. DIAGNOSIS: Lumbar radiculopathy. PROCEDURES PERFORMED: Reoperation left L4-L5 hemilaminectomy, medial facetectomy, decompression, and right L5 foraminotomy. ANESTHESIA: General. DESCRIPTION OF PROCEDURE: The patient was brought into the operating room and placed under general anesthesia. She was flipped from the supine to prone position on the operating room table. A linear incision was planned to the area of a prior incision site. After prepping and draping and after an appropriate preoperative pause, the incision was created. The soft tissues were swept away from midline. Self-retaining retractors were placed in the wound for optimal exposure. After confirming the appropriate levels with C-arm fluoroscopy, high-speed cutting drill bit was used to perform a medial facetectomy at the L4-L5 interface in order to decompress the exiting L5 nerve root. After decompressing the segment, we redirected our attention to the right L5 foramen where after dissecting through scar tissue and identifying bone margins, medial facetectomy was also performed as well as a foraminotomy over the exiting L5 nerve root. The wound was then irrigated. Hemostasis was maintained throughout. The wound was then closed in anatomic layers and a pressure dressing was applied. There were no known procedural complications. Job ID: [id number]
[2019-01-24] MEDS ORDERED: Dexamethasone 20 MG/5 ML VIAL ONE (16:31)
[2019-01-24] MEDS ORDERED: Lidocaine 1% PF 5 ML VIAL ONE (16:31)
[2019-01-24] MEDS ORDERED: Glycopyrrolate 0.2 MG/ML 5 ML SYRINGE ONE (16:31)
[2019-01-24] MEDS ORDERED: Ondansetron PF 4 MG/2 ML Vial ONE (16:31)
[2019-01-24] MEDS ORDERED: Rocuronium Bromide 10 MG/ML (10ML VIAL) ONE (16:31)
[2019-01-24] MEDS ORDERED: PROPOFOL 200 MG/20 ML VIAL ONE (16:31)
== END 2019-01-24 13:45 | disposition home or self-care (01) ==
LOC: SDC 06:29
PROVIDERS: ATTEND Neurological Surgery
PROC: 01NB0ZZ Release Lumbar Nerve, Open Approach (ICD-10-PCS; principal; 2019-01-24)
DX: M54.16 Radiculopathy, lumbar region (principal); M48.061 Spinal stenosis, lumbar region without neurogenic claudication; E11.9 Type 2 diabetes mellitus without complications; I10 Essential (primary) hypertension; E78.5 Hyperlipidemia, unspecified; E78.00 Pure hypercholesterolemia, unspecified; Z79.2 Long term (current) use of antibiotics; Z79.899 Other long term (current) drug therapy; Z88.1 Allergy status to other antibiotic agents; Z88.2 Allergy status to sulfonamides; Z88.5 Allergy status to narcotic agent; Z88.8 Allergy status to other drugs, medicaments and biological substances; Z91.048 Other nonmedicinal substance allergy status; Z98.890 Other specified postprocedural states; Z96.652 Presence of left artificial knee joint
CPT/HCPCS: 76000; J0670; J0690; J1100; J2001; J2270; J2405; J2550; J2704; J3010

== ENCOUNTER 2019-08-17 09:08 | Outpatient (CLI) | payer MEDICARE ==
--- NOTE | 2019-08-17 10:38 | ULT ---
BILATERAL RENAL ULTRASOUND: HISTORY: Follow-up exam. Urinary tract infection. Previous hydronephrosis. COMPARISON: 12/22/2018 FINDINGS: Right kidney: Normal cortical echotexture. No calyceal dilatation. However, there is mild dilatation of the right renal pelvis. When compared to the previous examination, the degree of pelvic dilatation has decreased. Pelvic dilatation persists after voiding. Right kidney measurements: 5.2 x 10.4 x 5.0 cm. Left kidney: Normal cortical echotexture. No hydronephrosis. Left kidney measurements: 10.0 x 5.6 x 4.6 cm. Urinary bladder: Normal mucosa. Pre-void volume was 107 mL. Post-void volume is 37 mL. IMPRESSION: 1. Interval decrease in size of previously noted right pelvic dilatation. There is mild right pelvic dilatation which persists after voiding. 2. Significant post-void residual in the urinary bladder. Transcribed Date/Time: 08/17/2019 10:43 AM
== END 2019-08-17 09:09 | disposition home or self-care (01) ==
LOC: BICULT 09:08
PROVIDERS: ATTEND Urology
DX: N28.1 Cyst of kidney, acquired (principal)
CPT/HCPCS: 76770

== ENCOUNTER 2019-09-14 11:54 | Outpatient (CLI) | payer MEDICARE ==
--- NOTE | 2019-09-14 12:56 | MMO ---
Bilateral MAMMO Bilat Screen [facility]. CLINICAL HISTORY: Patient is 84 years old and is seen for screening. The patient has no family history of breast cancer. The patient has no personal history of cancer. VIEWS: The views performed were: bilateral craniocaudal with tomosynthesis and bilateral mediolateral oblique with tomosynthesis. FILMS COMPARED: The present examination has been compared to a prior imaging study performed at [facility] on 10/15/2017. This study has been interpreted with the assistance of computer-aided detection. MAMMOGRAM FINDINGS: There are scattered fibroglandular densities. Finding 1: There is a stable nodule seen in the sub-areolar region of the right breast. Finding 2: There are stable benign appearing calcifications seen in both breasts. There are no suspicious masses, suspicious calcifications, or new areas of architectural distortion. IMPRESSION: THERE IS NO MAMMOGRAPHIC EVIDENCE OF MALIGNANCY. A ROUTINE FOLLOW-UP MAMMOGRAM IN 1 YEAR IS RECOMMENDED. THE RESULTS OF THIS EXAM WERE SENT TO THE PATIENT. ACR BI-RADS Category 2 - Benign finding MAMMOGRAPHY NOTE: 1. A negative mammogram report should not delay a biopsy if a dominant of clinically suspicious mass is present. 2. Approximately 10% to 15% of breast cancers are not detected by mammography. 3. Adenosis and dense breasts may obscure an underlying neoplasm. Reported by: MORIAH GUILLORY MD Electonically Signed: [id number]
== END 2019-09-14 11:55 | disposition home or self-care (01) ==
LOC: BICMAMMO 11:54
PROVIDERS: ATTEND Family Medicine
DX: Z12.31 Encounter for screening mammogram for malignant neoplasm of breast (principal)
CPT/HCPCS: 77063; 77067

== ENCOUNTER 2019-12-01 13:02 | Outpatient (CLI) | payer MEDICARE ==
[2019-12-01] MEDS ORDERED: Magnevist 469MG/ML 20 ML VIAL ONE (14:41)
--- NOTE | 2019-12-01 14:50 | MRI ---
MR the lumbar spine with and without contrast: 12/01/2019 History: Lumbar radiculopathy, leg pain and back pain COMPARISON: 06/02/2018 TECHNIQUE: Multiplanar multisequence MR images were obtained of lumbar spine with and without IV cont rast FINDINGS: On the basis of 5 lumbar type vertebral bodies, conus medullaris terminates at [id number] level. Sagittal STIR imaging demonstrates no focal area of osseous marrow edema. There is increased STIR sig nal within the posterior paraspinal soft tissues at L4 and L5, unchanged when compared to the 2018 exam. T12-L1:Disc space narrowing with anterior osteophyte formation and mild disc bulge noted. Bilateral f acet hypertrophy. No significant central canal or neural foraminal stenosis. L1-2:Bilateral facet hypertrophy, right greater than left. There is disc space narrowing with disc de siccation. Anterior osteophyte formation noted. There is a small right paracentral disc protrusion. There is mild right lateral recess stenosis and m ild right neural foraminal stenosis. L2-3:There is disc space narrowing and disc desiccation with mild disc bulge. Bilateral facet hypertr ophy noted with hypertrophy of the ligamentum flavum. There is a small disc protrusion in the left foraminal region. There is no significant central canal stenosis. Mild right and moderate/severe left neural foraminal stenosis, worsened since the prior exam on the left. L3-4:Prominent bilateral facet hypertrophy. There is disc space narrowing with disc desiccation and d isc bulge. Mild central canal stenosis. Bilateral facet hypertrophy present with mild right and moderate/severe left neural foraminal stenosi s, similar when compared to the prior examination. L4-5:There is disc space narrowing with partial osseous fusion at the intervertebral disc level. A di sc osteophyte complex with a probable superimposed stable small left paracentral disc protrusion noted. Stable moderate central canal stenosis and moderate left lateral recess stenosis. Stable moder ate left and mild right neural foraminal stenosis. L5-S1:Intervertebral disc height and signal intensity appears within normal limits. Stable mild/moder ate central canal stenosis and stable mild bilateral neural foraminal stenosis. Image retroperitoneal structures demonstrateno acute findings. Incidental note is made of cholelithia sis. There are laminectomy changes suspected at the L3-L5 levels. The postcontrast imaging demonstrates no abnormal enhancement involving the intervertebral discs or i ha osseous structures. The postcontrast imaging demonstrates nonspecific anterior epidural soft tissue enhancement posterior to the S1 vertebral body, unchanged when compared to the 2018 exam. This could represent epidural fibrosis or scar. There is also enhancement of the posterior paraspinal musculature at the L4, L5, and S1 levels, likely on the basis of prior surgery. The enhancement of th e posterior paraspinal musculature and of the anterior epidural space within the lower lumbar spine is unchanged. IMPRESSION: Multilevel degenerative and postoperative change as described above.
== END 2019-12-01 13:03 | disposition home or self-care (01) ==
LOC: TBSIIMAG 13:02
PROVIDERS: ATTEND Neurological Surgery
DX: M47.26 Other spondylosis with radiculopathy, lumbar region (principal); Z98.890 Other specified postprocedural states
CPT/HCPCS: 72158; 82565; A9579

== ENCOUNTER 2020-04-03 10:28 | Outpatient (CLI) | payer MEDICARE ==
--- NOTE | 2020-04-03 11:07 | RAD ---
Exam: XR Hip Rt 2-3 View HISTORY: Right hip and buttock pain. COMPARISON: 10/26/2013 FINDINGS: Right hip osteoarthritis is again seen and not significant changed when compared to prior exam. Promi nent enthesophytes are again seen involving the right greater trochanter. No fracture or dislocation is seen involving the right hip. No significant interval change is appreciated when vita red to the prior exam. Degenerative changes are partially imaged involving the pubic symphysis. IMPRESSION: Stable views right hip with osteoarthritis involving the right hip. No obvious fracture is visualized . However, if there is strong clinical concern for fracture or persistent right hip pain, follow-up imaging can be performed versus MRI right hip to evaluate for radiographically occult fracture.
== END 2020-04-03 10:29 | disposition home or self-care (01) ==
LOC: TBSIIMAG 10:28
PROVIDERS: ATTEND Neurological Surgery
DX: M25.551 Pain in right hip (principal); M16.11 Unilateral primary osteoarthritis, right hip

== ENCOUNTER 2020-10-11 12:20 | Outpatient (CLI) | payer MEDICARE ==
--- NOTE | 2020-10-11 13:26 | RAD ---
EXAM: XR Abdomen 2 View PROVIDED CLINICAL HISTORY: Abdominal pain. COMPARISON: None FINDINGS: Visualized lung bases are clear. There is mild elevation right hemidiaphragm. There are calcification s overlying the left upper quadrant which are difficult to further localize. Phleboliths overlie the left hemipelvis. Bowel gas pattern is nonspecific. Degenerative changes are seen in the spine wit h S-shaped scoliotic curvature of thoracolumbar spine. Mild bilateral hip osteoarthritis is present. IMPRESSION: Nonspecific bowel gas pattern.
== END 2020-10-11 12:21 | disposition home or self-care (01) ==
LOC: BICRAD 12:20
PROVIDERS: ATTEND Physician Assistant Medical
DX: R10.30 Lower abdominal pain, unspecified (principal); R19.4 Change in bowel habit; K56.699 Other intestinal obstruction unspecified as to partial versus complete obstruction; R39.198 Other difficulties with micturition
CPT/HCPCS: 74019

== ENCOUNTER 2021-01-04 09:43 | Outpatient (CLI) | payer MEDICARE | END 2021-01-04 09:44 | disposition home or self-care (01) | LOC: RAD 09:43 | PROVIDERS: ATTEND Specialist | DX: K57.30 Diverticulosis of large intestine without perforation or abscess without bleeding (principal) | CPT/HCPCS: 74280 ==

== ENCOUNTER 2021-01-22 01:04 | Inpatient (IN) | payer MEDICARE ==
[2021-01-22 01:27] LABS: #Basophils 0.1 thou/uL (0.0-0.2); #Eosinphils 0.1 thou/uL (0.0-0.7); #Lymphocytes 1.8 thou/uL (1.20-3.40); #Monocytes 0.8 thou/uL (0.11-0.59); #Neutrophils 8.2 thou/uL (1.40-6.50); %Basophils 0.5 % (0.0-1.0); %Eosinophils 1.3 % (0.0-10.0); %Monocytes 7.4 % (0.0-10.0); %Neutrophils 74.9 % (42.0-75.0); Hemoglobin 14.1 g/dL (12.0-16.0); Mean Corpuscular HGB CONC 32.9 g/dL (32.0-36.0); Mean Corpuscular Hemoglobin 31.7 pg (27.0-31.0); Mean Corpuscular Volume 96.4 fL (78.0-98.0); Mean Platelet Volume 8.2 fL (7.4-10.4); Platelet Count 210 thou/uL (130-400); RBC Distribution Width 12.2 % (11.5-14.5); Red Blood Cell (RBC) Count 4.46 mill/uL (4.20-5.40)
[2021-01-22 01:48] LABS: ALT (SGPT) 15 U/L (8-55); AST (SGOT) 24 U/L (5-34); Albumin 4.5 g/dL (3.4-4.8); Alkaline Phosphatase 60 U/L (40-110); Anion Gap 15 mmol/L (10-20); BUN (Urea Nitrogen) 17 mg/dL (9.8-20.1); Bilirubin, Total 0.5 mg/dL (0.2-1.2); Calc. Creatinine Clearance 0 mL/min (70-130); Calcium 10.3 mg/dL (7.8-10.44); Carbon Dioxide 26 mmol/L (23-31); Chloride 100 mmol/L (98-107); Globulin 3.1 g/dL (2.4-3.5); Glucose 123 mg/dL (83-110); Lipase 27 U/L (8-78); Potassium 3.8 mmol/L (3.5-5.1); Protein, Total 7.6 g/dL (5.8-8.1); Sodium 137 mmol/L (136-145)
[2021-01-22] MEDS ORDERED: Ondansetron PF 4 MG/2 ML Vial ONE (02:46)
[2021-01-22] MEDS ORDERED: Fentanyl 100 MCG/2 ML VIAL ONE (02:46)
[2021-01-22 03:03] LABS: Bilirubin Negative (Negative); Blood, Urine Negative (Negative); Clarity Clear (Clear); Glucose, Urine (Dipstick) Normal (Negative); Ketone, Urine Negative (Negative); Leukocyte 250 Leu/uL (Negative); Nitrite Negative (Negative); Protein, Urine (Dipstick) Negative (Neg-Trace); Specific Gravity, Urine 1.037 (1.002-1.036); Urobilinogen Normal mg/dL (Less than 2); pH, Urine 6.5 (5.0-9.0)
[2021-01-22 03:04] LABS: Bacteria/HPF None Seen HPF (None Seen); WBC/HPF 21-50 HPF (0-3)
[2021-01-22] MEDS ORDERED: cefTRIAXone\\ROCEPHIN 2 GM VIAL ONE (03:50)
[2021-01-22] MEDS ORDERED: Dextrose 50% Abboject 50 ML SYRINGE SLOW IVP PRN (03:52)
[2021-01-22] MEDS ORDERED: HumaLOG 300 UNITS/3 ML VIAL SC PRN (03:52)
[2021-01-22] MEDS ORDERED: Ondansetron PF 4 MG/2 ML Vial IVP PRN (03:52)
[2021-01-22] MEDS ORDERED: Dextrose 5% in Water 1,000 ML IV PRN (03:52)
[2021-01-22] MEDS ORDERED: hydrALAZINE 20 MG/ML VIAL SLOW IVP PRN (03:55)
[2021-01-22] MEDS ORDERED: Morphine 4 MG/ML VIAL SLOW IVP PRN (03:55)
[2021-01-22 04:14] VITALS: BMI 26.2
[2021-01-22] MEDS ORDERED: Sodium Chloride 0.9% 1,000 ML IV SCH (04:15)
[2021-01-22] MEDS ORDERED: Acetaminophen 325 MG TAB PO PRN (04:30)
[2021-01-22] MEDS: Lactated Ringer's 1,000 ML IV SCH ×2 (04:46→19:19)
[2021-01-22] MEDS ORDERED: Morphine 4 MG/ML VIAL ONE ×2 (06:35→13:17)
[2021-01-22 09:00] LABS: SARS-CoV-2 PCR by NAA Not Detected (NotDetected)
[2021-01-22] MEDS: Heparin 5,000 UNITS/ML VIAL SC SCH ×3 (09:49→21:08)
[2021-01-22] MEDS: Famotidine/PF 20 mg/2ml Vial SLOW IVP SCH ×2 (09:49→21:08)
[2021-01-22] MEDS ORDERED: Famotidine/PF 20 mg/2ml Vial ONE (09:50)
[2021-01-22] MEDS ORDERED: Iopamidol-370 76% 500 ML 1 ML ONE (10:27)
[2021-01-22] MEDS: Morphine 4 MG/ML VIAL SLOW IVP SCH ×2 (19:42→21:09)
[2021-01-23] MEDS: Morphine 4 MG/ML VIAL SLOW IVP SCH ×6 (01:09→20:39)
[2021-01-23] MEDS: Lactated Ringer's 1,000 ML IV SCH (04:43)
[2021-01-23] MEDS: cefTRIAXone\\ROCEPHIN 1 GM in Sodium Chloride 0.9% 100 ML IVPB SCH (04:43)
[2021-01-23 06:45] LABS: #Eosinphils 0.2 thou/uL (0.0-0.7); #Lymphocytes 1.5 thou/uL (1.20-3.40); #Monocytes 0.8 thou/uL (0.11-0.59); #Neutrophils 5.3 thou/uL (1.40-6.50); %Basophils 0.5 % (0.0-1.0); %Eosinophils 2.1 % (0.0-10.0); %Lymphocytes 19.7 % (21.0-51.0); %Monocytes 10.1 % (0.0-10.0); %Neutrophils 67.6 % (42.0-75.0); Mean Corpuscular HGB CONC 33.4 g/dL (32.0-36.0); Mean Corpuscular Hemoglobin 32.5 pg (27.0-31.0); Mean Corpuscular Volume 97.2 fL (78.0-98.0); Mean Platelet Volume 8.4 fL (7.4-10.4); Platelet Count 175 thou/uL (130-400); RBC Distribution Width 12.4 % (11.5-14.5); Red Blood Cell (RBC) Count 3.69 mill/uL (4.20-5.40); White Blood Cell (WBC) Count 7.8 thou/uL (4.8-10.8)
[2021-01-23 06:55] LABS: Anion Gap 13 mmol/L (10-20); BUN (Urea Nitrogen) 10 mg/dL (9.8-20.1); Calc. Creatinine Clearance 57 mL/min (70-130); Carbon Dioxide 26 mmol/L (23-31); Chloride 102 mmol/L (98-107); Glucose 92 mg/dL (83-110); Potassium 3.6 mmol/L (3.5-5.1); Sodium 137 mmol/L (136-145)
[2021-01-23] MEDS: Heparin 5,000 UNITS/ML VIAL SC SCH ×4 (08:10→20:38)
[2021-01-23] MEDS ORDERED: MD-Gastroview 120 ML BOT ONE (12:00)
[2021-01-23] MEDS: Famotidine/PF 20 mg/2ml Vial SLOW IVP SCH ×2 (12:08→20:40)
[2021-01-24] MEDS: Morphine 4 MG/ML VIAL SLOW IVP SCH ×3 (00:24→08:05)
[2021-01-24] MEDS: cefTRIAXone\\ROCEPHIN 1 GM in Sodium Chloride 0.9% 100 ML IVPB SCH (04:52)
[2021-01-24] MEDS: Famotidine/PF 20 mg/2ml Vial SLOW IVP SCH (08:01)
[2021-01-24] MEDS: Heparin 5,000 UNITS/ML VIAL SC SCH (08:04)
[2021-01-24] MEDS: Lactated Ringer's 1,000 ML IV SCH (08:56)
[2021-01-24 11:36] VITALS: BP 154/68; TEMP 98.2
== END 2021-01-24 11:35 | disposition home or self-care (01) | DRG 389 ==
LOC: ERS 01:04 → ERHOLD 02:56 → T4-B 14:36
PROVIDERS: ADMIT Internal Medicine; ATTEND Family Medicine
PROC: 0D9670Z Drainage of Stomach with Drainage Device, Via Natural or Artificial Opening (ICD-10-PCS; principal; 2021-01-22)
DX: K91.30 Postprocedural intestinal obstruction, unspecified as to partial versus complete (principal); N39.0 Urinary tract infection, site not specified; Z20.822 Contact with and (suspected) exposure to COVID-19; E11.9 Type 2 diabetes mellitus without complications; E78.5 Hyperlipidemia, unspecified; I10 Essential (primary) hypertension; R33.9 Retention of urine, unspecified; E78.00 Pure hypercholesterolemia, unspecified; K57.30 Diverticulosis of large intestine without perforation or abscess without bleeding; M19.90 Unspecified osteoarthritis, unspecified site; Y83.8 Other surgical procedures as the cause of abnormal reaction of the patient, or of later complication, without mention of misadventure at the time of the procedure; Z90.49 Acquired absence of other specified parts of digestive tract; Z88.0 Allergy status to penicillin; Z88.1 Allergy status to other antibiotic agents; Z88.5 Allergy status to narcotic agent; Z79.899 Other long term (current) drug therapy; Z90.710 Acquired absence of both cervix and uterus
CPT/HCPCS: 36415; 36416; 71045; 74177; 74250; 80048; 80053; 81003; 81015; 83690; 85025; 87086; 87635; 93005; 96365; 96375; J0696; J1644; J2270; J2405; J3010; J3490; Q9963; Q9967; S0028; U0003; U0005

== ENCOUNTER 2021-01-31 12:00 | Inpatient (IN) | payer MEDICARE ==
[2021-02-05] MEDS ORDERED: Ketorolac Tromethamine 30 MG/ML VIAL ONE ×2 (09:55→17:23)
[2021-02-05] MEDS ORDERED: cefOXitin Sodium/Dextrose 2 GM/50 ML BAG ONE (09:55)
[2021-02-05] MEDS ORDERED: Fentanyl 100 MCG/2 ML VIAL ONE ×4 (10:07→15:42)
[2021-02-05] MEDS ORDERED: Lidocaine 1% (PF) 30 ML VIAL ONE (10:11)
[2021-02-05] MEDS ORDERED: Bupivacaine 0.25% HCL 30 ML VIAL ONE (10:11)
[2021-02-05] MEDS ORDERED: Lidocaine 1% w/Epinephrine 1:100K 20 ML VIAL ONE ×2 (10:12→12:48)
[2021-02-05] MEDS ORDERED: Rocuronium Bromide 10 MG/ML (10ML VIAL) ONE ×2 (10:43→12:15)
[2021-02-05] MEDS ORDERED: Dexamethasone 20 MG/5 ML VIAL ONE (10:43)
[2021-02-05] MEDS ORDERED: PHENYLEPHRINE-NS 100 MCG/ML 10 ML SYRINGE ONE ×2 (10:43→11:01)
[2021-02-05] MEDS ORDERED: Esmolol 100 MG/10 ML VIAL ONE (10:43)
[2021-02-05] MEDS ORDERED: Lidocaine 1% PF 5 ML VIAL ONE (10:43)
[2021-02-05] MEDS ORDERED: PROPOFOL 200 MG/20 ML VIAL ONE (10:43)
[2021-02-05] MEDS ORDERED: Bupivacaine HCl 0.5%/Epinephrine 1:200,000/PF 30 ml Vial ONE (10:43)
[2021-02-05] MEDS ORDERED: Phenylephrine 10 MG/ML VIAL ONE (11:02)
[2021-02-05] MEDS ORDERED: Promethazine HCl 25 MG/ML VIAL SLOW IVP PRN (11:54)
[2021-02-05] MEDS ORDERED: HYDROmorphone 2 MG/ML VIAL SLOW IVP PRN (11:54)
[2021-02-05] MEDS ORDERED: Ondansetron HCl/PF 4 MG/2 ML Vial IVP PRN (11:54)
[2021-02-05] MEDS ORDERED: ePHEDrine Sulfate 50 MG/10 ML VIAL ONE (12:15)
[2021-02-05] MEDS ORDERED: Glycopyrrolate 0.2 MG/ML 5 ML SYRINGE ONE (12:15)
[2021-02-05] MEDS ORDERED: Ondansetron PF 4 MG/2 ML Vial ONE (12:15)
[2021-02-05] MEDS ORDERED: Naloxone HCl 0.4 mg/ml Vial ONE (12:15)
[2021-02-05] MEDS ORDERED: Morphine 4 MG/ML VIAL SLOW IVP PRN ×3 (15:37→17:15)
[2021-02-05 15:45] LABS: Bacteria/HPF 4+ HPF (None Seen); Bilirubin Negative (Negative); Blood, Urine 1+ (Negative); Clarity Extra Turbid (Clear); Glucose, Urine (Dipstick) Normal (Negative); Ketone, Urine 10 mg/dL (Negative); Leukocyte 500 Leu/uL (Negative); Nitrite Negative (Negative); Protein, Urine (Dipstick) 70 mg/dL (Neg-Trace); RBC/HPF 21-50 HPF (0-3); Specific Gravity, Urine 1.031 (1.002-1.036); Transitional Epithelial 0-3 HPF (None Seen); Urobilinogen Normal mg/dL (Less than 2); WBC/HPF Greater than 50 HPF (0-3)
[2021-02-05] MEDS ORDERED: D5 1/2 NS w/20 mEq KCL 1,000 ML IV SCH (15:45)
[2021-02-05] MEDS ORDERED: Ondansetron PF 4 MG/2 ML Vial IVP PRN (17:09)
[2021-02-05] MEDS ORDERED: Promethazine HCl 25 MG/ML VIAL IM PRN (17:09)
[2021-02-05] MEDS ORDERED: hydrALAZINE 20 MG/ML VIAL SLOW IVP PRN (17:09)
[2021-02-05] MEDS: Ketorolac Tromethamine 30 MG/ML VIAL IVP SCH ×2 (18:10→23:09)
[2021-02-05] MEDS: D5 1/2 NS w/20 mEq KCL 1,000 ML IV SCH (20:40)
[2021-02-05] MEDS: Carvedilol 6.25 MG TAB PO SCH (20:40)
[2021-02-05] MEDS ORDERED: Enoxaparin Sodium 40 MG/0.4 ML SYRINGE SC SCH (21:00)
[2021-02-05] MEDS: HYDROcodone/Acetaminophen 7.5/325 mg Tablet PO PRN (21:55)
[2021-02-05 22:20] VITALS: BMI 25.2
[2021-02-05] MEDS: Famotidine/PF 20 mg/2ml Vial SLOW IVP SCH (23:11)
[2021-02-05] MEDS: Famotidine 20 MG TAB PO SCH (23:11)
[2021-02-06] MEDS: D5 1/2 NS w/20 mEq KCL 1,000 ML IV SCH ×4 (02:30→19:44)
[2021-02-06 05:27] LABS: #Monocytes 0.8 thou/uL (0.11-0.59); #Neutrophils 10.9 thou/uL (1.40-6.50); %Lymphocytes 7.7 % (21.0-51.0); %Monocytes 6.4 % (0.0-10.0); %Neutrophils 85.9 % (42.0-75.0); Hemoglobin 10.3 g/dL (12.0-16.0); Mean Corpuscular HGB CONC 33.1 g/dL (32.0-36.0); Mean Corpuscular Volume 96.6 fL (78.0-98.0); Mean Platelet Volume 8.6 fL (7.4-10.4); Platelet Count 208 thou/uL (130-400); Red Blood Cell (RBC) Count 3.22 mill/uL (4.20-5.40); White Blood Cell (WBC) Count 12.7 thou/uL (4.8-10.8)
[2021-02-06] MEDS: Ketorolac Tromethamine 30 MG/ML VIAL IVP SCH ×3 (06:03→19:31)
[2021-02-06 06:04] LABS: Anion Gap 11 mmol/L (10-20); BUN (Urea Nitrogen) 19 mg/dL (9.8-20.1); Calc. Creatinine Clearance 37 mL/min (70-130); Carbon Dioxide 25 mmol/L (23-31); Chloride 102 mmol/L (98-107); Potassium 4.5 mmol/L (3.5-5.1); Sodium 133 mmol/L (136-145)
[2021-02-06 06:05] LABS: Calcium 8.1 mg/dL (7.8-10.44); Glucose 260 mg/dL (83-110)
[2021-02-06] MEDS: Famotidine 20 MG TAB PO SCH (08:15)
[2021-02-06] MEDS: Famotidine/PF 20 mg/2ml Vial SLOW IVP SCH (08:18)
[2021-02-06] MEDS: Polyethylene Glycol 3350 17 GM Packet PO SCH (08:18)
[2021-02-06] MEDS: Carvedilol 6.25 MG TAB PO SCH ×2 (08:28→19:52)
[2021-02-06] MEDS: Hydrochlorothiazide 25 MG TAB PO SCH (08:29)
[2021-02-06] MEDS: Losartan 25 MG TAB PO SCH (08:29)
[2021-02-06] MEDS ORDERED: Acetaminophen 325 MG TAB PO PRN (16:49)
[2021-02-06] MEDS ORDERED: HYDROcodone/Acetaminophen 7.5/325 mg Tablet PO PRN (16:49)
[2021-02-06] MEDS: HYDROcodone/Acetaminophen 7.5/325 mg Tablet PO PRN (19:44)
[2021-02-06 21:10] LABS: #Neutrophils 11.9 thou/uL (1.40-6.50); %Basophils 0.1 % (0.0-1.0); White Blood Cell (WBC) Count 14.6 thou/uL (4.8-10.8)
[2021-02-06 21:22] LABS: #Lymphocytes 1.4 thou/uL (1.20-3.40); #Monocytes 1.3 thou/uL (0.11-0.59); %Eosinophils 0.2 % (0.0-10.0); %Lymphocytes 9.6 % (21.0-51.0); %Monocytes 9.1 % (0.0-10.0); Hemoglobin 10.3 g/dL (12.0-16.0); Mean Corpuscular HGB CONC 33.3 g/dL (32.0-36.0); Mean Corpuscular Hemoglobin 32.4 pg (27.0-31.0); Mean Corpuscular Volume 97.4 fL (78.0-98.0); Mean Platelet Volume 8.5 fL (7.4-10.4); Platelet Count 198 thou/uL (130-400); RBC Distribution Width 12.1 % (11.5-14.5); Red Blood Cell (RBC) Count 3.18 mill/uL (4.20-5.40)
[2021-02-06] MEDS ORDERED: D5 1/2 NS w/20 mEq KCL 1,000 ML IV SCH (22:15)
[2021-02-07 05:15] LABS: #Lymphocytes 1.6 thou/uL (1.20-3.40); #Monocytes 1.1 thou/uL (0.11-0.59); #Neutrophils 8.6 thou/uL (1.40-6.50); %Basophils 0.2 % (0.0-1.0); %Eosinophils 0.1 % (0.0-10.0); %Monocytes 9.5 % (0.0-10.0); %Neutrophils 76.1 % (42.0-75.0); Hemoglobin 9.5 g/dL (12.0-16.0); Mean Corpuscular HGB CONC 31.9 g/dL (32.0-36.0); Mean Corpuscular Hemoglobin 31.6 pg (27.0-31.0); Mean Corpuscular Volume 99.1 fL (78.0-98.0); Mean Platelet Volume 8.4 fL (7.4-10.4); Platelet Count 178 thou/uL (130-400); RBC Distribution Width 12.1 % (11.5-14.5); Red Blood Cell (RBC) Count 2.99 mill/uL (4.20-5.40); White Blood Cell (WBC) Count 11.3 thou/uL (4.8-10.8)
[2021-02-07 05:46] LABS: Anion Gap 9 mmol/L (10-20); BUN (Urea Nitrogen) 12 mg/dL (9.8-20.1); Calc. Creatinine Clearance 53 mL/min (70-130); Calcium 8.1 mg/dL (7.8-10.44); Carbon Dioxide 24 mmol/L (23-31); Chloride 109 mmol/L (98-107); Glucose 121 mg/dL (83-110); Potassium 4.7 mmol/L (3.5-5.1); Sodium 137 mmol/L (136-145)
[2021-02-07] MEDS: HYDROcodone/Acetaminophen 7.5/325 mg Tablet PO PRN ×2 (06:26→14:24)
[2021-02-07] MEDS: D5 1/2 NS w/20 mEq KCL 1,000 ML IV SCH (10:01)
[2021-02-07] MEDS: Hydrochlorothiazide 25 MG TAB PO SCH (10:01)
[2021-02-07] MEDS: Polyethylene Glycol 3350 17 GM Packet PO SCH (10:01)
[2021-02-07] MEDS: Losartan 25 MG TAB PO SCH (10:02)
[2021-02-07] MEDS: Carvedilol 6.25 MG TAB PO SCH ×2 (10:03→20:23)
[2021-02-07] MEDS: Famotidine/PF 20 mg/2ml Vial SLOW IVP SCH (10:03)
[2021-02-07] MEDS: Famotidine 20 MG TAB PO SCH (10:04)
[2021-02-08] MEDS: HYDROcodone/Acetaminophen 7.5/325 mg Tablet PO PRN ×2 (00:40→14:01)
[2021-02-08 05:20] LABS: #Eosinphils 0.1 thou/uL (0.0-0.7); #Lymphocytes 2.5 thou/uL (1.20-3.40); #Monocytes 0.9 thou/uL (0.11-0.59); #Neutrophils 5.5 thou/uL (1.40-6.50); %Basophils 0.5 % (0.0-1.0); %Eosinophils 1.3 % (0.0-10.0); %Lymphocytes 27.7 % (21.0-51.0); %Monocytes 9.9 % (0.0-10.0); %Neutrophils 60.6 % (42.0-75.0); Hemoglobin 9.1 g/dL (12.0-16.0); Mean Corpuscular HGB CONC 32.8 g/dL (32.0-36.0); Mean Corpuscular Hemoglobin 32.1 pg (27.0-31.0); Mean Corpuscular Volume 97.9 fL (78.0-98.0); Mean Platelet Volume 8.8 fL (7.4-10.4); Platelet Count 167 thou/uL (130-400); RBC Distribution Width 12.2 % (11.5-14.5); Red Blood Cell (RBC) Count 2.82 mill/uL (4.20-5.40); White Blood Cell (WBC) Count 9.1 thou/uL (4.8-10.8)
[2021-02-08] MEDS: Carvedilol 6.25 MG TAB PO SCH (08:55)
[2021-02-08] MEDS: Famotidine/PF 20 mg/2ml Vial SLOW IVP SCH (08:55)
[2021-02-08] MEDS: Hydrochlorothiazide 25 MG TAB PO SCH (08:56)
[2021-02-08] MEDS: Losartan 25 MG TAB PO SCH (08:56)
[2021-02-08] MEDS: Famotidine 20 MG TAB PO SCH (09:00)
[2021-02-08] MEDS: Polyethylene Glycol 3350 17 GM Packet PO SCH (09:05)
[2021-02-08] MEDS: D5 1/2 NS w/20 mEq KCL 1,000 ML IV SCH (09:06)
[2021-02-08 16:08] VITALS: BP 138/57; TEMP 98.3
== END 2021-02-08 17:40 | disposition home or self-care (01) | DRG 330 ==
LOC: SURG A 02-05 08:36 → EDSTATUS 02-05 12:00 → SJJU 02-05 19:30
PROVIDERS: ADMIT Specialist; ATTEND Specialist
PROC: 0DBN0ZZ Excision of Sigmoid Colon, Open Approach (ICD-10-PCS; principal; 2021-02-06)
DX: K57.32 Diverticulitis of large intestine without perforation or abscess without bleeding (principal); K62.5 Hemorrhage of anus and rectum; E11.9 Type 2 diabetes mellitus without complications; I10 Essential (primary) hypertension; E78.5 Hyperlipidemia, unspecified; Z90.710 Acquired absence of both cervix and uterus; Z96.651 Presence of right artificial knee joint; Z82.49 Family history of ischemic heart disease and other diseases of the circulatory system; Z80.41 Family history of malignant neoplasm of ovary; Z83.3 Family history of diabetes mellitus; Z88.2 Allergy status to sulfonamides; Z88.1 Allergy status to other antibiotic agents; Z88.5 Allergy status to narcotic agent; Z88.0 Allergy status to penicillin; Z87.440 Personal history of urinary (tract) infections
CPT/HCPCS: 36415; 36416; 80048; 81001; 85025; 87077; 87086; 87186; 88307; J0694; J1100; J1650; J1885; J2001; J2310; J2370; J2405; J2704; J3010; J3480; S0020; S0028

== ENCOUNTER 2021-08-07 12:52 | Outpatient (CLI) | payer MEDICARE | END 2021-08-07 12:53 | disposition home or self-care (01) | LOC: BICMAMMO 12:52 | PROVIDERS: ATTEND Family Medicine | DX: Z12.31 Encounter for screening mammogram for malignant neoplasm of breast (principal); Z13.820 Encounter for screening for osteoporosis; M85.852 Other specified disorders of bone density and structure, left thigh | CPT/HCPCS: 77063; 77067; 77080 ==

== ENCOUNTER 2022-06-17 10:17 | Emergency (ER) | payer OTHER, MEDICARE ==
[2022-06-17] MEDS ORDERED: Boostrix 0.5 ML (Tdap) VIAL (>/=7 yrs of age) ONE (11:02)
[2022-06-17] MEDS ORDERED: Acetaminophen 500 MG TAB ONE (11:02)
[2022-06-17] MEDS ORDERED: Aspirin Chewable 81 MG TAB ONE (12:41)
== END 2022-06-17 12:56 | disposition home or self-care (01) ==
LOC: ERS 10:17
DX: S00.33XA Contusion of nose, initial encounter (principal); M54.50 Low back pain, unspecified; E11.9 Type 2 diabetes mellitus without complications; I10 Essential (primary) hypertension; E78.5 Hyperlipidemia, unspecified; Z23 Encounter for immunization; W01.0XXA Fall on same level from slipping, tripping and stumbling without subsequent striking against object, initial encounter
CPT/HCPCS: 36416; 70450; 70486; 72125; 72131; 90471; 90715; 93005

== ENCOUNTER 2022-08-20 12:09 | Outpatient (CLI) | payer MEDICARE | END 2022-08-20 12:10 | disposition home or self-care (01) | LOC: BICULT 12:09 | PROVIDERS: ATTEND Family Medicine | DX: E04.2 Nontoxic multinodular goiter (principal) | CPT/HCPCS: 76536 ==

== ENCOUNTER 2023-01-17 21:08 | Observation (INO) | payer MEDICARE ==
[~2023-01-17 21:08] MED LIST: Iopamidol-370 76% 500 ML MDV (1 ML CHARGE) ONE
[2023-01-17 22:23] LABS: #Eosinphils 0.1 thou/uL (0.0-0.7); #Lymphocytes 2.2 thou/uL (1.20-3.40); #Monocytes 0.6 thou/uL (0.11-0.59); #Neutrophils 4.6 thou/uL (1.40-6.50); %Basophils 0.5 % (0.0-1.0); %Eosinophils 1.6 % (0.0-10.0); %Lymphocytes 28.9 % (21.0-51.0); %Monocytes 8.2 % (0.0-10.0); %Neutrophils 60.9 % (42.0-75.0); Hemoglobin 13.6 g/dL (12.0-16.0); Mean Corpuscular HGB CONC 34.5 g/dL (32.0-36.0); Mean Corpuscular Volume 95.7 fl (78.0-98.0); Mean Platelet Volume 7.9 fL (7.4-10.4); Platelet Count 204 10x3/uL (130-400); RBC Distribution Width 12.3 % (11.5-14.5); Red Blood Cell (RBC) Count 4.11 mill/uL (4.20-5.40); White Blood Cell (WBC) Count 7.5 10x3/uL (4.8-10.8)
[2023-01-17 22:37] LABS: Prothrombin Time 13.2 sec (12.0-14.7)
[2023-01-17 23:15] LABS: Acetaminophen Less than 10.0 mcg/mL (10.0-30.0); Alcohol Less than 10 mg/dL (Less than 10); CK (CPK) 190 U/L (29-168); Salicylate Less than 8.0 mg/dL (15.0-30.0)
[2023-01-17 23:16] LABS: ALT (SGPT) 12 U/L (8-55); AST (SGOT) 20 U/L (5-34); Albumin 4.2 g/dL (3.4-4.8); Alkaline Phosphatase 57 U/L (40-110); Anion Gap 16 mmol/L (10-20); BUN (Urea Nitrogen) 12 mg/dL (9.8-20.1); Bilirubin, Total 0.6 mg/dL (0.2-1.2); Calc. Creatinine Clearance 0 mL/min (70-130); Calcium 9.6 mg/dL (7.8-10.44); Carbon Dioxide 23 mmol/L (23-31); Chloride 105 mmol/L (98-107); Estimated GFR 68; Globulin 2.5 g/dL (2.4-3.5); Glucose 96 mg/dL (83-110); Potassium 3.9 mmol/L (3.5-5.1); Protein, Total 6.7 g/dL (5.8-8.1); Sodium 140 mmol/L (136-145)
[2023-01-17] MEDS ORDERED: Aspirin Chewable 81 MG TAB ONE (23:47)
[2023-01-18] MEDS ORDERED: Ondansetron ODT 4 MG TAB PO PRN (00:11)
[2023-01-18] MEDS ORDERED: Ondansetron PF 4 MG/2 ML Vial IVP PRN (00:11)
[2023-01-18] MEDS ORDERED: hydrALAZINE 20 MG/ML VIAL SLOW IVP PRN (00:11)
[2023-01-18] MEDS ORDERED: Acetaminophen 325 MG TAB PO PRN (00:11)
[2023-01-18] MEDS ORDERED: Acetaminophen 325 MG TAB PO SCH (00:15)
[2023-01-18] MEDS ORDERED: Atorvastatin Calcium 20 MG TAB PO SCH ×2 (00:45→21:00)
[2023-01-18 01:59] VITALS: BMI 26.1
[2023-01-18 03:02] LABS: Troponin I Less than 0.010 ng/mL (< 0.028)
[2023-01-18 03:05] LABS: Phosphorus 3.3 mg/dL (2.3-4.7)
[2023-01-18 03:07] LABS: Cardiac Risk 3.2 (Less than 4.5); Cholesterol 148 mg/dl (< 200 Desired); HDL Cholesterol 46 mg/dL (>60 Neg Risk); LDL Cholesterol, Calculated 83 mg/dL; Magnesium 1.9 mg/dL (1.6-2.6); Triglycerides 97 mg/dL (Less than 150)
[2023-01-18 06:16] LABS: Troponin I Less than 0.010 ng/mL (< 0.028)
[2023-01-18] MEDS: Acetaminophen 325 MG TAB PO SCH ×2 (08:31→21:03)
[2023-01-18] MEDS: Aspirin 81 mg Enteric Coated Tablet PO SCH (08:31)
[2023-01-19 05:34] LABS: #Eosinphils 0.2 thou/uL (0.0-0.7); #Lymphocytes 2.1 thou/uL (1.20-3.40); #Monocytes 0.8 thou/uL (0.11-0.59); #Neutrophils 3.3 thou/uL (1.40-6.50); %Basophils 0.6 % (0.0-1.0); %Eosinophils 3.1 % (0.0-10.0); %Lymphocytes 32.8 % (21.0-51.0); %Neutrophils 51.4 % (42.0-75.0); Hemoglobin 13.6 g/dL (12.0-16.0); Mean Corpuscular HGB CONC 33.8 g/dL (32.0-36.0); Mean Corpuscular Hemoglobin 32.2 pg (27.0-31.0); Mean Corpuscular Volume 95.3 fl (78.0-98.0); Mean Platelet Volume 7.9 fL (7.4-10.4); Platelet Count 188 10x3/uL (130-400); RBC Distribution Width 12.5 % (11.5-14.5); Red Blood Cell (RBC) Count 4.22 mill/uL (4.20-5.40); White Blood Cell (WBC) Count 6.4 10x3/uL (4.8-10.8)
[2023-01-19 05:55] LABS: Anion Gap 13 mmol/L (10-20); BUN (Urea Nitrogen) 10 mg/dL (9.8-20.1); Calc. Creatinine Clearance 53 mL/min (70-130); Calcium 9.2 mg/dL (7.8-10.44); Carbon Dioxide 25 mmol/L (23-31); Chloride 107 mmol/L (98-107); Estimated GFR 71; Glucose 91 mg/dL (83-110); Potassium 3.7 mmol/L (3.5-5.1); Sodium 141 mmol/L (136-145)
[2023-01-19 08:17] VITALS: TEMP 96.3
[2023-01-19] MEDS: Acetaminophen 325 MG TAB PO SCH (08:54)
[2023-01-19] MEDS: Aspirin 81 mg Enteric Coated Tablet PO SCH (08:54)
[2023-01-19] MEDS ORDERED: Carvedilol 3.125 MG TAB PO SCH (09:00)
[2023-01-19 10:45] VITALS: BP 146/60
[2023-01-19] MEDS ORDERED: Atorvastatin Calcium 40 MG TAB PO SCH (21:00)
== END 2023-01-19 12:42 | disposition home or self-care (01) ==
LOC: ERS 21:08 → NEURO 23:23
PROVIDERS: ADMIT Internal Medicine; ATTEND Internal Medicine
DX: G45.9 Transient cerebral ischemic attack, unspecified (principal); E04.1 Nontoxic single thyroid nodule; E11.9 Type 2 diabetes mellitus without complications; I11.9 Hypertensive heart disease without heart failure; E78.5 Hyperlipidemia, unspecified; G89.29 Other chronic pain; M54.9 Dorsalgia, unspecified; I08.3 Combined rheumatic disorders of mitral, aortic and tricuspid valves; Z79.899 Other long term (current) drug therapy; Z88.0 Allergy status to penicillin; Z88.1 Allergy status to other antibiotic agents; Z88.2 Allergy status to sulfonamides; Z88.5 Allergy status to narcotic agent; Z90.49 Acquired absence of other specified parts of digestive tract
CPT/HCPCS: 36415; 36416; 70450; 70496; 70498; 70551; 71045; 80048; 80053; 80061; 80307; 82550; 83036; 83735; 84100; 84443; 84484; 85025; 85610; 85730; 93005; 93306; G0378; Q9967